=== PATIENT | female | born 1980 | race Two or more races ===

== ENCOUNTER 2025-03-26 16:22 | Emergency (ER) | payer OTHER ==
[~2025-03-26] VITALS: Ht 149.9 cm; Wt 59.0 kg
[2025-03-26 16:48] VITALS: BP 132/85; O2SAT 100
[2025-03-26] MEDS ORDERED: IRON325 MG (16:48)
[2025-03-26] MEDS ORDERED: SYNTHROID88 MCG PO (16:48)
[2025-03-26] MEDS ORDERED: ZESTRIL30 MG (16:48)
[2025-03-26 18:51] LABS: BASO % 0.2 % (0.1-1.2); EOS # 0.28 (0.04-0.54); HEMATOCRIT 30.9 % (34.1-44.9); HEMOGLOBIN 9.8 g/dL (11.2-15.7); LYMPH % 24.6 % (19.3-53.1); MEAN CORPUSCULAR HEMOGLOBIN 24.7 pg (25.6-32.2); MONO % 7.5 % (4.7-12.5); NEUT # 6.01 (1.56-6.13); NEUT % 64.4 % (34.0-71.1); PLATELET COUNT 283 K/uL (163-369); RED BLOOD COUNT 3.96 M/uL (3.93-5.22); RED CELL DISTRIBUTION WIDTH 16.4 % (11.6-14.4)
== END 2025-03-26 19:50 | disposition home or self-care (01) ==
LOC: ER 16:22
PROVIDERS: General Practice
DX: R00.2 Palpitations (principal); D64.9 Anemia, unspecified; Z88.8 Allergy status to other drugs, medicaments and biological substances; Z91.041 Radiographic dye allergy status